=== PATIENT | male | born 1960 | race Two or more races ===

== ENCOUNTER → 2016-08-19 | Outpatient (CLI) | payer OTHER ==
[~2016-08-19] MED LIST: IOPAMIDOL (ISOVUE 370) 100 ML BTL IV ONE
--- NOTE | 2016-08-19 13:54 | CT ---
CT Abdomen and Pelvis Unenhanced (Renal Stone Protocol) Indication: Recent colonoscopy with polyp biopsies near the base of the appendix, abdominal pain. Io dine ALLERGY. Smoker. Comparison: None available. Technique: Axial unenhanced CT imaging was performed through the abdomen and pelvis without contrast . Dose reduction techniques were utilized. Findings: Abdomen: There is an incompletely visualized 3 mm noncalcified left lower lobe nodule adjacent to t he major fissure (series 3 image 1). Heart size is normal. Coronary artery atherosclerosis is present in the RCA. Punctate right hepatic granuloma is noted. The gallbladder, spleen, pancreas, adrenals, and kidneys h ave a normal unenhanced appearance. No renal or ureteral stones are identified. The colon and small bowel are normal caliber. A clip is noted in the medial wall of the ascending col on. Mild colonic diverticulosis is present without evidence of diverticulitis. The appendix is normal . There is no free air or fluid. The aorta is normal caliber with mild atherosclerosis. A tiny fat-containing paraumbilical hernia is present. There is an old mild compression fracture at T11. Pelvis: No bladder or distal ureteral calcifications are identified. The prostate is upper normal c aliber, measuring 5 cm. No aggressive osseous lesions are present.. Impression: 1. No acute findings in the abdomen or pelvis. 2. 3 mm left lower lobe nodule of doubtful clinical significance. Given the patient's history of smok ing, unenhanced low dose chest CT is recommended for follow up in 12 months. 3. Coronary artery atherosclerosis in the RCA. 4. Additional findings, as above. Attention: This examination does not use radiographic contrast, and as such, provides only a limited evaluation of the abdomen, pelvis and retroperitoneum. Findings discussed with Darek Dang today at 1345 hours.
== END ==
LOC: CIMAGING 12:34
PROVIDERS: ATTEND Internal Medicine Gastroenterology
DX: R10.84 Generalized abdominal pain (principal); R91.1 Solitary pulmonary nodule; I25.10 Atherosclerotic heart disease of native coronary artery without angina pectoris
CPT/HCPCS: 74176-PO; Q9967

== ENCOUNTER → 2017-09-02 | Outpatient (CLI) | payer OTHER | LOC: CIMAGING 08:15 | PROVIDERS: ATTEND Internal Medicine Gastroenterology | DX: R91.1 Solitary pulmonary nodule (principal); R10.31 Right lower quadrant pain | CPT/HCPCS: 71250-PO ==

== ENCOUNTER → 2017-09-17 | Outpatient (CLI) | payer OTHER | LOC: CIMAGING 07:16 | PROVIDERS: ATTEND Internal Medicine Gastroenterology | DX: K76.0 Fatty (change of) liver, not elsewhere classified (principal); K76.89 Other specified diseases of liver | CPT/HCPCS: 76705-PO ==